=== PATIENT | female | born 1995 | race American Indian/Alaskan Native ===

== ENCOUNTER 2016-08-07 15:19 | Emergency (ER) | payer SELFPAY ==
[2016-08-07 16:23] VITALS: BP 104/77
[2016-08-07] MEDS ORDERED: TYLENOL PO ONE (17:50)
--- NOTE | 2016-08-07 17:53 | Emergency Department Report ---
HPI - General Chief Complaint: Sore Throat - HPI HPI: 20-year-old -[place] female comes with complaint of sore throat 1.5 weeks. She rates it to 7 out of 10. She also complains of sinus pressure, headache, runny nose, cough. Admits to sneezing and nasal congestion. He denies any fever chills no nausea no vomiting. He has a history of glaucoma. ED Past Medical Hx - Past Medical History Previous Medical History?: Yes Additional medical history: glaucoma - Surgical History Past Surgical History?: No - Social History Smoking Status: Never Smoker Substance Use Type: Alcohol - Medications Home Medications: Home Medications Medication Instructions Recorded Confirmed Last Taken Type Amoxicillin [Amoxicillin TAB] 875 mg PO BID #20 tablet 08/07/16 Unknown Rx Cetirizine HCl [ZyrTEC] 10 mg PO QDAY #30 capsule 08/07/16 Unknown Rx Fluticasone [Flonase] 1 spray NS QDAY #1 bottle 08/07/16 Unknown Rx ED Review of Systems ROS: Stated complaint: SORETHROAT Other details as noted in HPI Physical Exam - Physical Exam Vital Signs: Vital Signs 08/07/16 16:14 Temperature 98.3 F Pulse Rate 80 Respiratory 18 Rate Blood Pressure 104/77 O2 Sat by Pulse 100 Oximetry Physical Exam: GENERAL: Alert and oriented x3, no apparent distress, Normal Gait, atraumatic. HEAD: Head is normocephalic and a-traumatic. EYES: Extra ocular muscles are intact. Pupils are equal, round, and reactive to light and accommodation. EARS: symetrical, atraumatic, non tender, ear canal clear and moderate cerumen, tympanic membrance non inflamed. gross auditory nml bilaterally. NOSE: Nose symetrical, Nontender,Nares appeared normal. Maxillary and frontal tenderness MOUTH:Mouth is well hydrated and without lesions. Tonsils nonerythematous or swollen, Uvula midline, Tongue not elevated. Mucous membranes are moist. Posterior pharynx clear, no exudate or lesions. Patent airways. Postnasal drip NECK: Supple. Non edematous, No carotid bruits. No lymphadenopathy or thyromegaly. LUNGS: Symetrical with respiration, No wheezing, no rales or crackles, CTAB. HEART: S1, S2 present, regular rate and rhythm without murmur, no rubs, no gallops. NEUROLOGIC: No focal Deficit, Cranial nerves II through XII are grossly intact. No loss of sensation, No facial droop, Negative rhomberg. PSYCHIATRIC: Mood is congruent with affect, SKIN: Warm and dry, No lesions, No ulceration or induration present ED Course Vital Signs 08/07/16 16:14 Temperature 98.3 F Pulse Rate 80 Respiratory 18 Rate Blood Pressure 104/77 O2 Sat by Pulse 100 Oximetry ED Medical Decision Making - Medical Decision Making Patient's been evaluated by this provider fast track. Discussed the patient sounds like she has a sinus infection discussed the patient we'll place her on antibiotics Claritin Sudafed Flonase. Patient verbalized understanding Critical care attestation.: If time is entered above; I have spent that time in minutes in the direct care of this critically ill patient, excluding procedure time. ED Disposition Clinical Impression: Sinusitis nasal Qualifiers: Sinusitis location: maxillary Chronicity: acute Recurrence: non-recurrent Qualified Code(s): J01.00 - Acute maxillary sinusitis, unspecified Disposition: DISCHARGED TO HOME OR SELFCARE Is pt being admited?: No Does the pt Need Aspirin: No Condition: Stable Instructions: Sinusitis (ED) Additional Instructions: Antibiotics as prescribed use nasal spray as prescribed take Zyrtec as prescribed symptoms continue or get worse following to primary care provider. Prescriptions: Amoxicillin [Amoxicillin TAB] 875 mg PO BID #20 tablet Cetirizine HCl [ZyrTEC] 10 mg PO QDAY #30 capsule Fluticasone [Flonase] 1 spray NS QDAY #1 bottle Referrals: PRIMARY CARE, [Primary Care Provider] - 3-5 Days [facility] [Outside] - 3-5 Days Forms: Work/School Release Form(ED)
== END 2016-08-07 18:05 | disposition home or self-care (01) ==
LOC: ED 15:19
DX: J01.00 Acute maxillary sinusitis, unspecified (principal)
CPT/HCPCS: 99282

== ENCOUNTER 2016-08-30 15:01 | Emergency (ER) | payer SELFPAY ==
[2016-08-30 16:12] VITALS: BP 110/72
--- NOTE | 2016-08-30 19:46 | Emergency Department Report ---
Entered by KATHERIN ZAPIEN, acting as scribe for FABY BENEDICT PA. ED ENT HPI - General Chief complaint: Sore Throat Stated complaint: SORE THROAT /ESTER Source: patient Mode of arrival: Ambulatory Limitations: No Limitations - History of Present Illness Initial comments: 20 y/o female presents c/o a sore throat that started about 1 month ago. Associated Sx include difficulty breathing due to nasal congestion, productive cough with yellow sputum and loss of appetite, but patient denies fever, shortness of breath, abdominal pain or N/V. Patient notes being prescribed medicine for similar Sx previously, but did not take her medication consistently. She has taken benadryl and Tylenol Cold for her present Sx with no relief and has no sick contacts. No additional Sx MD complaint: sore throat Location: throat Quality: constant Consistency: constant Improves with: none Worsens with: none Associated Symptoms: cough (productive with yellow mucous), other (difficulty breathing due to congestion, loss of appetitie, but denies fever, N/V or abd pain) - Related Data Previous Rx's Medication Instructions Recorded Last Taken Type Amoxicillin [Amoxicillin TAB] 875 mg PO BID #20 tablet 08/07/16 Unknown Rx Cetirizine HCl [ZyrTEC] 10 mg PO QDAY #30 capsule 08/30/16 Unknown Rx Fluticasone [Flonase] 1 spray NS QDAY #1 bottle 08/30/16 Unknown Rx Promethazine /Codeine 5 ml PO Q6H PRN #100 ml 08/30/16 Unknown Rx [Phenergan/Codeine 6.25-10 mg/5 ml] Allergies Allergy/AdvReac Type Severity Reaction Status Date / Time pistachio nut Allergy Anaphylaxis Verified 08/07/16 16:23 ED Dental HPI - General Chief complaint: Sore Throat Stated complaint: SORE THROAT /ESTER Source: patient Mode of arrival: Ambulatory Limitations: No Limitations - Related Data Previous Rx's Medication Instructions Recorded Last Taken Type Amoxicillin [Amoxicillin TAB] 875 mg PO BID #20 tablet 08/07/16 Unknown Rx Cetirizine HCl [ZyrTEC] 10 mg PO QDAY #30 capsule 08/30/16 Unknown Rx Fluticasone [Flonase] 1 spray NS QDAY #1 bottle 08/30/16 Unknown Rx Promethazine /Codeine 5 ml PO Q6H PRN #100 ml 08/30/16 Unknown Rx [Phenergan/Codeine 6.25-10 mg/5 ml] Allergies Allergy/AdvReac Type Severity Reaction Status Date / Time pistachio nut Allergy Anaphylaxis Verified 08/07/16 16:23 ED Review of Systems Comment: All other systems reviewed and negative Constitutional: denies: chills, fever Eyes: denies: eye pain, vision change ENT: congestion. denies: ear pain, throat pain Respiratory: cough (productive with yellow mucous). denies: shortness of breath , wheezing Cardiovascular: denies: chest pain, palpitations Endocrine: no symptoms reported Gastrointestinal: denies: abdominal pain, nausea, vomiting Neurological: denies: headache, weakness ED Past Medical Hx - Past Medical History Previous Medical History?: Yes Additional medical history: glaucoma - Surgical History Past Surgical History?: No - Social History Smoking Status: Never Smoker Substance Use Type: Non Opiate Pain - Medications Home Medications: Home Medications Medication Instructions Recorded Confirmed Last Taken Type Amoxicillin [Amoxicillin TAB] 875 mg PO BID #20 tablet 08/07/16 Unknown Rx Cetirizine HCl [ZyrTEC] 10 mg PO QDAY #30 capsule 08/30/16 Unknown Rx Fluticasone [Flonase] 1 spray NS QDAY #1 bottle 08/30/16 Unknown Rx Promethazine /Codeine 5 ml PO Q6H PRN #100 ml 08/30/16 Unknown Rx [Phenergan/Codeine 6.25-10 mg/5 ml] ED Physical Exam - General Limitations: No Limitations - Other Other exam information: GENERAL: The patient is well-developed and well-nourished. Patient is in NAD. HEAD: Normocephalic. Atraumatic. EYES: PERRL. EARS: Hearing grossly intact, cerumen impaction bilaterally NOSE: Nasal passages inflamed bilaterally, positive for drainage THROAT: Erythematous. No swelling or exudates. NECK: Supple, nontender, without lymphadenopathy. No meningitic signs are noted. CHEST/LUNGS: Clear to auscultation throughout. HEART/CARDIOVASCULAR: Regular rate and rhythm. No murmurs, rubs or gallops. ABDOMEN: Abdomen is soft, nontender. No guarding or rebound tenderness. EXTREMITIES: Peripheral pulses intact. Capillary refill less than 2 seconds. NEURO: Alert and oriented x 3. Normal gait. ED Course Vital Signs 08/30/16 16:07 Temperature 97.6 F Pulse Rate 90 Respiratory 16 Rate Blood Pressure 110/72 O2 Sat by Pulse 98 Oximetry ED Medical Decision Making - Lab Data Vital Signs 08/30/16 16:07 Temperature 97.6 F Pulse Rate 90 Respiratory 16 Rate Blood Pressure 110/72 O2 Sat by Pulse 98 Oximetry - Medical Decision Making 20 y/o female presents c/o a sore throat that started about 1 month ago. Her rapid strep test is negative. Patient is in no acute distress at this time. She will be discharged home and is encouraged to follow up with a primary care provider. She will be sent home on promethazine/codeine, Flonase and Zyrtec and is encouraged to return to the emergency room for any worsening symptoms. ED Disposition Clinical Impression: Pharyngitis Qualifiers: Pharyngitis/tonsillitis etiology: unspecified etiology Qualified Code(s): J02.9 - Acute pharyngitis, unspecified Rhinitis Qualifiers: Rhinitis type: allergic Allergic rhinitis seasonality: unspecified seasonality Allergic rhinitis trigger: unspecified Qualified Code(s): J30.9 - Allergic rhinitis, unspecified Disposition: DISCHARGED TO HOME OR SELFCARE Is pt being admited?: No Does the pt Need Aspirin: No Condition: Stable Instructions: Pharyngitis (ED), Allergic Rhinitis (ED) Additional Instructions: Follow-up with primary care provider. Return to emergency department if symptoms worsen. Prescriptions: Cetirizine HCl [ZyrTEC] 10 mg PO QDAY #30 capsule Fluticasone [Flonase] 1 spray NS QDAY #1 bottle Promethazine /Codeine [Phenergan/Codeine 6.25-10 mg/5 ml] 5 ml PO Q6H PRN #100 ml PRN Reason: cough Referrals: PRIMARY CARE, [Primary Care Provider] - 3-5 Days [facility] [Outside] - 3-5 Days Forms: Work/School Release Form(ED) Time of Disposition: 19:02 This documentation as recorded by the RUPALI tinsley RYAN,accurately reflects the service I personally performed and the decisions made by ,FABY BENEDICT PA.
== END 2016-08-30 19:05 | disposition home or self-care (01) ==
LOC: ED 15:01
DX: J02.9 Acute pharyngitis, unspecified (principal); J30.9 Allergic rhinitis, unspecified; Z91.018 Allergy to other foods
CPT/HCPCS: 87116; 87430; 99282

== ENCOUNTER 2020-03-25 12:50 | Emergency (ER) | payer SELFPAY ==
[2020-03-25 12:58] VITALS: BP 104/66
--- NOTE | 2020-03-25 13:27 | Emergency Department Report ---
Chief Complaint: Sore Throat Stated Complaint: SICK - HPI History of Present Illness: 24-year-old -Citizen Of [place] female presents to the emergency room for 3-week history of sore throat. Patient has not taking any pain medication. She reports she had a fever subjectively. Patient states she is able to eat and drink no nausea no vomiting no abdominal pain. Intermittent cough. Has not been tested for Covid. - Exam Vital Signs: Vital Signs 03/25/20 12:57 Temperature 98.4 F Pulse Rate 93 H Respiratory 16 Rate Blood Pressure 104/66 O2 Sat by Pulse 99 Oximetry Physical Exam: Gen: alert oriented NAD Throat: postnasal drip nonerythematous nonedematous no exudate appreciated. Cardic: regular rate and rhythm no murmurs appreciated Resp: Clear to auscultation bilateral no wheezing no rales or rhonchi. Abdomen: Soft nontender nondistended normal bowel sounds. MSE screening note: Focused history and physical exam performed. Due to findings the following was ordered: 24-year-old -Citizen [place] female presents to the emergency room for 3-week history of sore throat. Patient has not taking any pain medication. She reports she had a fever subjectively. Patient states she is able to eat and drink no nausea no vomiting no abdominal pain. Intermittent cough. Has not been tested for Covid. Recommend Covid testing [id number] Tylenol or ibuprofen and Zyrtec's. ED Disposition for MSE Disposition: MED SCREENING EXAM-LEFT Is pt being admited?: No Does the pt Need Aspirin: No Condition: Stable Additional Instructions: Please try taking Zyrtec's [id number] Tylenol and ibuprofen. Your symptoms appear most consistent with a nonspecific viral syndrome. However, given this current pandemic, COVID-19 is in the differential of possibilities. Despite your previous negative COVID-19 test, I do recommend repeat outpatient Covid 19 testing. In the meantime, isolate/quarantine yourself and stay away from anyone who is elderly, immunocompromised or chronically ill. You can use ibuprofen every 6-8 hours and Tylenol every 4-8 hours, using the dosing on the back of the bottle, as needed for any fever or body aches. Return to the emergency department with any worsening of your symptoms, development of chest pain or shortness of breath, or with any acute distress. Referrals: [facility] [Provider Group] - 3-5 Days Forms: Work/School Release Form(ED)
== END 2020-03-25 14:26 | disposition left against medical advice (07) ==
LOC: ED 12:50
DX: R69 Illness, unspecified (principal); Z53.21 Procedure and treatment not carried out due to patient leaving prior to being seen by health care provider

== ENCOUNTER 2020-07-19 13:37 | Emergency (ER) | payer SELFPAY ==
[2020-07-19 14:06] VITALS: BP 101/61
--- NOTE | 2020-07-19 14:12 | Emergency Department Report ---
ED ENT HPI - General Chief complaint: Earache Stated complaint: RT EAR PAIN Time Seen by Provider: 07/19/20 14:08 Source: patient Mode of arrival: Ambulatory Limitations: No Limitations - History of Present Illness Initial comments: 24 yo comes to ER co bilateral ear pain the right she states is worse. She has had no recent URI. No fever or chills. No cough. No sob. No cp. No sinus pain or pressure. Taking PO without difficulty. Denies trauma to ear. Has not seen PCP She has not taken anything at home for pain. Pain she describes a pressure. No sore throat. No headache or sinus complaints. No coughing or sneezing. MD complaint: ear pain -: Gradual, days(s) Location: R ear, L ear Severity: moderate Consistency: intermittent Improves with: pressure Worsens with: none Associated Symptoms: discharge from ear. denies: fever, cough, gum swelling, toothache, pain with swallowing, sore throat, tinnitus, hearing loss, rhinorrhea - Related Data Previous Rx's Medication Instructions Recorded Last Taken Type Amoxicillin [Trimox CAP] 500 mg PO BID #20 capsule 07/19/20 Unknown Rx Ciprofloxacin HCl/Dexameth 1 drop AD BID #1 each 07/19/20 Unknown Rx [Ciprodex Otic Suspension] Allergies Allergy/AdvReac Type Severity Reaction Status Date / Time pistachio nut Allergy Anaphylaxis Verified 07/19/20 14:03 ED Dental HPI - General Chief complaint: Earache Stated complaint: RT EAR PAIN Time Seen by Provider: 07/19/20 14:08 Source: patient Mode of arrival: Ambulatory Limitations: No Limitations - Related Data Previous Rx's Medication Instructions Recorded Last Taken Type Amoxicillin [Trimox CAP] 500 mg PO BID #20 capsule 07/19/20 Unknown Rx Ciprofloxacin HCl/Dexameth 1 drop AD BID #1 each 07/19/20 Unknown Rx [Ciprodex Otic Suspension] Allergies Allergy/AdvReac Type Severity Reaction Status Date / Time pistachio nut Allergy Anaphylaxis Verified 07/19/20 14:03 ED Review of Systems ROS: Stated complaint: RT EAR PAIN Other details as noted in HPI Comment: All other systems reviewed and negative ED Past Medical Hx - Past Medical History Previous Medical History?: Yes Additional medical history: glaucoma - Surgical History Past Surgical History?: No - Family History Family history: no significant - Social History Smoking Status: Never Smoker Substance Use Type: Alcohol, Marijuana - Medications Home Medications: Home Medications Medication Instructions Recorded Confirmed Last Taken Type Amoxicillin [Trimox CAP] 500 mg PO BID #20 capsule 07/19/20 Unknown Rx Ciprofloxacin HCl/Dexameth 1 drop AD BID #1 each 07/19/20 Unknown Rx [Ciprodex Otic Suspension] ED Physical Exam - General Limitations: No Limitations General appearance: alert, in no apparent distress - Head Head exam: Present: atraumatic, normocephalic - Eye Eye exam: Present: normal appearance - ENT ENT exam: Present: mucous membranes moist - Expanded ENT Exam Expanded TM/Canal exam: Erythema: Left TM, Bulging: Left TM, Effusion: Left TM, Loss of Landmarks: Left TM, Foreign Body: Left TM, Canal Discharge: Right TM, Canal Tenderness: Right TM Mouth exam: Present: normal external inspection Teeth exam: Present: normal inspection Throat exam: Positive: normal inspection - Neck Neck exam: Present: normal inspection - Respiratory Respiratory exam: Present: normal lung sounds bilaterally. Absent: respiratory distress - Cardiovascular Cardiovascular Exam: Present: regular rate, normal rhythm. Absent: systolic murmur, diastolic murmur, rubs, gallop - GI/Abdominal GI/Abdominal exam: Present: soft, normal bowel sounds - Extremities Exam Extremities exam: Present: normal inspection - Back Exam Back exam: Present: normal inspection - Neurological Exam Neurological exam: Present: alert, oriented X3 - Psychiatric Psychiatric exam: Present: normal affect, normal mood - Skin Skin exam: Present: warm, dry, intact, normal color. Absent: rash ED Course Vital Signs 07/19/20 14:05 Temperature 98.4 F Pulse Rate 83 Respiratory 18 Rate Blood Pressure 101/61 [Right] O2 Sat by Pulse 98 Oximetry ED Medical Decision Making - Medical Decision Making VSS NAD no fever or chills no cp or sob Vital Signs 07/19/20 14:05 Temperature 98.4 F Pulse Rate 83 Respiratory 18 Rate Blood Pressure 101/61 [Right] O2 Sat by Pulse 98 Oximetry dc home with dc plan of care. She verbalizes understanding of meds and follow up. - Differential Diagnosis OM/otitis externa Critical care attestation.: If time is entered above; I have spent that time in minutes in the direct care of this critically ill patient, excluding procedure time. ED Disposition Clinical Impression: Otitis media, Otitis externa Disposition: DC-01 TO HOME OR SELFCARE Is pt being admited?: No Does the pt Need Aspirin: No Condition: Stable Instructions: Otitis Media, Adult Additional Instructions: do not use qtips or put anything in ears other than what I gave you today motrin or tylenol for pain follow up with pcp if problems persist after med completed referral below Prescriptions: Ciprofloxacin HCl/Dexameth [Ciprodex Otic Suspension] 1 drop AD BID #1 each Amoxicillin [Trimox CAP] 500 mg PO BID #20 capsule Referrals: STEVEN STARR MD [Staff Physician] - 3-5 Days Forms: Work/School Release Form(ED) Time of Disposition: 14:12
== END 2020-07-19 14:32 | disposition home or self-care (01) ==
LOC: ED 13:37
DX: H66.91 Otitis media, unspecified, right ear (principal); H60.91 Unspecified otitis externa, right ear; F12.10 Cannabis abuse, uncomplicated; Z79.2 Long term (current) use of antibiotics; Z79.899 Other long term (current) drug therapy
CPT/HCPCS: 99281

== ENCOUNTER 2020-08-07 10:05 | Emergency (ER) | payer SELFPAY ==
[2020-08-07 10:18] VITALS: BP 113/76
--- NOTE | 2020-08-07 10:26 | Emergency Department Report ---
ED General Adult HPI - General Chief complaint: Earache Stated complaint: EAR INFECTION Time Seen by Provider: 08/07/20 10:15 Source: patient Mode of arrival: Ambulatory Limitations: No Limitations - History of Present Illness Initial comments: 24-year-old -[place] female patient presents with complaints of continued right ear pain x1 month. Patient was seen here 07/19/2020 and diagnosed with otitis media and otitis externa. Patient states she has been taken amoxicillin without improvement in her symptoms. She also reports that she was prescribed eardrops, however they were too expensive and she did not fill them. She rates her current pain as a 4/10 in severity and does report ear drainage. She denies any fever/chills/sweats, chest pain, shortness of breath, cough, skin changes, or dysphagia. No past medical history per patient. - Related Data Previous Rx's Medication Instructions Recorded Last Taken Type Amoxicillin [Trimox CAP] 500 mg PO BID #20 capsule 07/19/20 Unknown Rx Ciprofloxacin HCl/Dexameth 1 drop AD BID #1 each 07/19/20 Unknown Rx [Ciprodex Otic Suspension] Azithromycin [Zithromax Z-FATOUMATA] 0 mg PO DAILY #6 tab 08/07/20 Unknown Rx Ofloxacin 0.3% [Floxin 0.3% Otic] 10 drop AD QDAY 7 Days #1 bottle 08/07/20 Unknown Rx Allergies Allergy/AdvReac Type Severity Reaction Status Date / Time pistachio nut Allergy Anaphylaxis Verified 07/19/20 14:03 ED Review of Systems ROS: Stated complaint: EAR INFECTION Other details as noted in HPI Constitutional: denies: chills, diaphoresis, fever, malaise Eyes: denies: eye pain, eye discharge, vision change ENT: ear pain Respiratory: denies: cough Cardiovascular: denies: chest pain Endocrine: denies: excessive sweating Gastrointestinal: denies: nausea, vomiting Skin: denies: rash, lesions, change in color Hematological/Lymphatic: denies: swollen glands ED Past Medical Hx - Past Medical History Previous Medical History?: Yes Additional medical history: glaucoma - Surgical History Past Surgical History?: No - Social History Smoking Status: Never Smoker Substance Use Type: None - Medications Home Medications: Home Medications Medication Instructions Recorded Confirmed Last Taken Type Amoxicillin [Trimox CAP] 500 mg PO BID #20 capsule 03/04/21 Unknown Rx Ciprofloxacin HCl/Dexameth 1 drop AD BID #1 each 07/19/20 Unknown Rx [Ciprodex Otic Suspension] Azithromycin [Zithromax Z-FATOUMATA] 0 mg PO DAILY #6 tab 08/07/20 Unknown Rx Ofloxacin 0.3% [Floxin 0.3% Otic] 10 drop AD QDAY 7 Days #1 bottle 08/07/20 Unknown Rx ED Physical Exam - General Limitations: No Limitations General appearance: alert, in no apparent distress - Head Head exam: Present: atraumatic, normocephalic - Eye Eye exam: Present: normal appearance. Absent: scleral icterus - Expanded ENT Exam Expanded TM/Canal exam: Canal Discharge: Right TM (Right purulent; difficulty visualizing tympanic membrane), Canal Tenderness: Right TM Mouth exam: Absent: drooling, trismus, muffled voice Teeth exam: Present: normal inspection Throat exam: Positive: normal inspection - Neck Neck exam: Present: normal inspection, full ROM. Absent: lymphadenopathy - Respiratory Respiratory exam: Absent: respiratory distress - Cardiovascular Cardiovascular Exam: Present: regular rate - Neurological Exam Neurological exam: Present: alert, oriented X3 - Psychiatric Psychiatric exam: Present: normal affect, normal mood - Skin Skin exam: Present: warm, dry, intact, normal color. Absent: rash ED Course Vital Signs 08/07/20 08/07/20 10:10 11:39 Temperature 98.2 F Pulse Rate 104 H 88 Respiratory 20 18 Rate Blood Pressure 113/76 O2 Sat by Pulse 98 99 Oximetry ED Medical Decision Making - Medical Decision Making 24-year-old -[place] female patient presents with complaints of continued right ear pain x1 month. Patient was seen here 07/19/2020 and diagnosed with otitis media and otitis externa. Patient states she has been taken amoxicillin without improvement in her symptoms. She also reports that she was prescribed eardrops, however they were too expensive and she did not fill them. She rates her current pain as a 4/10 in severity and does report ear drainage. She denies any fever/chills/sweats, chest pain, shortness of breath, cough, skin changes, or dysphagia. No past medical history per patient. Right otitis externa noted on exam with difficulty visualizing tympanic membrane. Given possible resistance to Amoxil, will place patient on azithromycin with ofloxacin otic drops. Recommend follow-up with ENT within 3 days. Her vitals are normal, she is well-appearing, she is stable for discharge home. Signs and symptoms that should prompt immediate return to the emergency department were discussed in detail with patient who verbalizes understanding. Critical care attestation.: If time is entered above; I have spent that time in minutes in the direct care of this critically ill patient, excluding procedure time. ED Disposition Clinical Impression: Otitis media Qualifiers: Otitis media type: suppurative Chronicity: acute Laterality: right Recurrence: not specified as recurrent Otitis externa Qualifiers: Otitis externa type: other infective Disposition: DC-01 TO HOME OR SELFCARE Is pt being admited?: No Condition: Stable Instructions: Otitis Media, Adult, [id number], Otitis Externa Prescriptions: Ofloxacin 0.3% [Floxin 0.3% Otic] 10 drop AD QDAY 7 Days #1 bottle Azithromycin [Zithromax Z-FATOUMATA] 0 mg PO DAILY #6 tab Referrals: ALIVIA LINDQUIST MD [Staff Physician] - 2-3 Days
== END 2020-08-07 11:39 | disposition home or self-care (01) ==
LOC: ED 10:05
DX: H66.91 Otitis media, unspecified, right ear (principal); H60.91 Unspecified otitis externa, right ear; Z79.899 Other long term (current) drug therapy; Z91.018 Allergy to other foods
CPT/HCPCS: 99282

== ENCOUNTER 2020-08-21 15:28 | Emergency (ER) | payer MEDICAID ==
[2020-08-21 15:50] VITALS: BP 105/66
--- NOTE | 2020-08-21 18:03 | Emergency Department Report ---
ED Female HPI - General Chief complaint: Urogenital-Female Stated complaint: STOMACH PAIN/STD EVLAUATION Time Seen by Provider: 08/21/20 17:54 Source: patient Mode of arrival: Ambulatory Limitations: No Limitations - History of Present Illness Initial comments: Patient is a 24 yo female who presents to the emergency room with complaints of "STD." she states that over the last few days she has had some pelvic discomfort. She states that last week her partner advised her that he tested positive for chlamydia. she states that they have been having unprotected intercourse. she states she has a small amount of white vaginal discharge which she reports is normal for pt. pt denies any fever, n/v/d, dysuria, vaginal itching or burning or lesions, vaginal bleeding. PMHx none. no allergies to meds. LNMP 2 weeks ago. - Related Data Previous Rx's Medication Instructions Recorded Last Taken Type Amoxicillin [Trimox CAP] 500 mg PO BID #20 capsule 07/19/20 Unknown Rx Ciprofloxacin HCl/Dexameth 1 drop AD BID #1 each 07/19/20 Unknown Rx [Ciprodex Otic Suspension] Azithromycin [Zithromax Z-FATOUMATA] 0 mg PO DAILY #6 tab 08/07/20 Unknown Rx Ofloxacin 0.3% [Floxin 0.3% Otic] 10 drop AD QDAY 7 Days #1 bottle 08/07/20 Unknown Rx Doxycycline Hyclate [Doxycycline 100 mg PO BID 7 Days #14 tab 08/21/20 Unknown Rx Hyclate TAB] Allergies Allergy/AdvReac Type Severity Reaction Status Date / Time pistachio nut Allergy Anaphylaxis Verified 07/19/20 14:03 ED Review of Systems ROS: Stated complaint: STOMACH PAIN/STD EVLAUATION Other details as noted in HPI Comment: All other systems reviewed and negative ED Past Medical Hx - Past Medical History Previous Medical History?: No Additional medical history: glaucoma - Surgical History Past Surgical History?: No - Social History Smoking Status: Never Smoker Substance Use Type: None - Medications Home Medications: Home Medications Medication Instructions Recorded Confirmed Last Taken Type Amoxicillin [Trimox CAP] 500 mg PO BID #20 capsule 07/19/20 Unknown Rx Ciprofloxacin HCl/Dexameth 1 drop AD BID #1 each 07/19/20 Unknown Rx [Ciprodex Otic Suspension] Azithromycin [Zithromax Z-FATOUMATA] 0 mg PO DAILY #6 tab 08/07/20 Unknown Rx Ofloxacin 0.3% [Floxin 0.3% Otic] 10 drop AD QDAY 7 Days #1 bottle 08/07/20 Unknown Rx Doxycycline Hyclate [Doxycycline 100 mg PO BID 7 Days #14 tab 08/21/20 Unknown Rx Hyclate TAB] ED Physical Exam - General Limitations: No Limitations General appearance: alert, in no apparent distress - Head Head exam: Present: atraumatic, normocephalic - Eye Eye exam: Present: normal appearance - ENT ENT exam: Present: mucous membranes moist - Respiratory Respiratory exam: Present: normal lung sounds bilaterally. Absent: respiratory distress, wheezes, rales, rhonchi, stridor, chest wall tenderness, accessory muscle use, decreased breath sounds, prolonged expiratory - Cardiovascular Cardiovascular Exam: Present: regular rate, normal rhythm, normal heart sounds. Absent: systolic murmur, diastolic murmur, rubs, gallop - GI/Abdominal GI/Abdominal exam: Present: soft, normal bowel sounds. Absent: distended, tenderness, guarding, rebound, rigid - Neurological Exam Neurological exam: Present: alert, oriented X3 - Psychiatric Psychiatric exam: Present: normal affect, normal mood - Skin Skin exam: Present: warm, dry, intact ED Course Vital Signs 08/21/20 15:49 Temperature 98.1 F Pulse Rate 85 Respiratory 17 Rate Blood Pressure 105/66 [Right] O2 Sat by Pulse 99 Oximetry ED Medical Decision Making - Lab Data Vital Signs 08/21/20 15:49 Temperature 98.1 F Pulse Rate 85 Respiratory 17 Rate Blood Pressure 105/66 [Right] O2 Sat by Pulse 99 Oximetry Lab Results 08/21/20 Range/Units Unknown Urine Color Yellow (Yellow) Urine Turbidity Cloudy (Clear) Urine pH 6.0 (5.0-7.0) Ur Specific [place] 1.006 (1.003-1.030) Urine Protein <15 mg/dl (Negative) mg/dL Urine Glucose (UA) Neg (Negative) mg/dL Urine Ketones Neg (Negative) mg/dL Urine Blood Neg (Negative) Urine Nitrite Neg (Negative) Ur Reducing Substances Not Reportable Urine Bilirubin Neg (Negative) Urine Ictotest Not Reportable Urine Urobilinogen < 2.0 (<2.0) mg/dL Ur Leukocyte Esterase Mod (Negative) Urine WBC (Auto) 13.0 H (0.0-6.0) /HPF Urine RBC (Auto) 5.0 (0.0-6.0) /HPF U Epithel Cells (Auto) 26.0 H (0-13.0) /HPF Urine Bacteria (Auto) 1+ (Negative) /HPF Urine Mucus Few /HPF Urine Yeast (Budding) Few /HPF Urine HCG, Qual Negative (Negative) - Medical Decision Making Patient is a 24 yo female who presents to the emergency room with complaints of "STD." she states that over the last few days she has had some pelvic discomfort. She states that last week her partner advised her that he tested positive for chlamydia. she states that they have been having unprotected intercourse. she states she has a small amount of white vaginal discharge which she reports is normal for pt. pt denies any fever, n/v/d, dysuria, vaginal itching or burning or lesions, vaginal bleeding. PMHx none. no allergies to meds. LNMP 2 weeks ago. Vitals are normal. On exam: No abdominal tenderness palpation, no guarding, no rebound, no rigidity, normal bowel sounds, no peritoneal signs. UA shows a small amount of white blood cells and moderate leukocyte esterase, there are many epithelial cells, could be due to contamination versus STD, patient is not having any urinary symptoms. Advised patient to have a repeat UA by her primary care physician. Due to known exposure, patient request prophylactic treatment. Patient given ceftriaxone IM and a prescription for doxycycline. Advised patient Please take medication as prescribed to completion. Follow-up with your primary care doctor and have your urine retested. Please follow-up with a clinic or the health department in order to have a full STD panel. Please have any partner tested and treated as well. Avoid sexual intercourse. Return to emergency room for new or worsening symptoms. Critical care attestation.: If time is entered above; I have spent that time in minutes in the direct care of this critically ill patient, excluding procedure time. ED Disposition Clinical Impression: Pelvic pain, Concern about STD in female without diagnosis Disposition: DC- TO HOME OR SELFCARE Is pt being admited?: No Does the pt Need Aspirin: No Condition: Stable Instructions: Safe Sex, Chlamydia, Female, Preventing Sexually Transmitted Infe ctions, Adult Additional Instructions: Please take medication as prescribed to completion. Follow-up with your primary care doctor and have your urine retested. Please follow-up with a clinic or the health department in order to have a full STD panel. Please have any partner tested and treated as well. Avoid sexual intercourse. Return to emergency room for new or worsening symptoms. walk in clinic: [facility] Address: [address] [place] [id number] [facility] Address: [address] [place] [address] [facility] Address: [address] [place] [address] Prescriptions: Doxycycline Hyclate [Doxycycline Hyclate TAB] 100 mg PO BID 7 Days #14 tab Referrals: PRIMARY CARE, [Primary Care Provider] - 2-3 Days [facility] [Outside] - 2-[address] [facility] [Provider Group] - 2-3 Days Time of Disposition: 20:18 Print Language: LAO
[2020-08-21 20:02] LABS: HCG Qualitative,Urine Negative (Negative)
[2020-08-21 20:11] LABS: Bacteria,Urine 1+ /HPF (Negative); Bilirubin,Urine NEG (Negative); Blood,Urine NEG (Negative); Color,Urine Yellow (Yellow); Mucus,Urine FEW /HPF; Protein,Urine <15 mg/dL mg/dL (Negative); Urobilinogen,Urine < 2.0 mg/dL (<2.0)
[2020-08-21] MEDS ORDERED: LIDOCAINE-MPF (1%) 10 MG/1 ML VIAL 5 ML INFILTRATI ONE (20:21)
== END 2020-08-21 21:00 | disposition home or self-care (01) ==
LOC: ED 15:28
DX: R10.2 Pelvic and perineal pain (principal); Z20.2 Contact with and (suspected) exposure to infections with a predominantly sexual mode of transmission; Z79.899 Other long term (current) drug therapy
CPT/HCPCS: 81001; 81025; 87086; 96372; 99283; J0696

== ENCOUNTER 2021-11-18 16:40 | Emergency (ER) | payer MEDICAID ==
--- NOTE | 2021-11-18 21:25 | Emergency Department Report ---
ED Rash HPI - HPI Chief Complaint: Medical Clearance Stated Complaint: HERPES EXPOSURE Time Seen by Provider: 11/18/21 20:38 Duration: 3 Days Location: Other Suspected Cause: Other Severity: mild Other History: 25-year-old female Jossue Soares complaining of a hyper simplex outbreak and seeking treatment as she has had to have in the past. She reports no fever, chills, sweats. No chest pain palpitation. No nausea no vomiting ED Review of Systems ROS: Stated complaint: HERPES EXPOSURE Other details as noted in HPI Comment: All other systems reviewed and negative ED Past Medical Hx - Past Medical History Previous Medical History?: Yes Additional medical history: glaucoma, Vaginal delivery x 1 - Surgical History Past Surgical History?: No - Social History Smoking Status: Never Smoker Substance Use Type: None - Medications Home Medications: Home Medications Medication Instructions Recorded Confirmed Last Taken Type Amoxicillin [Trimox CAP] 500 mg PO BID #20 capsule 07/19/20 Unknown Rx Ciprofloxacin HCl/Dexameth 1 drop AD BID #1 each 07/19/20 Unknown Rx [Ciprodex Otic Suspension] Azithromycin [Zithromax Z-FATOUMATA] 0 mg PO DAILY #6 tab 08/07/20 Unknown Rx Ofloxacin 0.3% [Floxin 0.3% Otic] 10 drop AD QDAY 7 Days #1 bottle 08/07/20 Unknown Rx Doxycycline Hyclate [Doxycycline 100 mg PO BID 7 Days #14 tab 08/21/20 Unknown Rx Hyclate TAB] Acyclovir [Zovirax Tab] 800 mg PO 5XD #40 11/18/21 Unknown Rx Rash Exam - Exam General: Vital signs noted. No distress. Alert and acting appropriately. HEENT: No Periorbital Edema, No Conjuctival Injection, No Chemosis, No Perioral Edema, No Tongue Edema, No Uvular Edema, No Compromised Airway, No Drooling Lungs: Yes Good Air Exchange (Normal Breath Sounds), No Wheezes, No Ronchi, No Stridor, No Cough, No Labored Respirations, No Retractions, No Use of Accessory Muscles, No Other Abnormal Lung Sounds Heart: Yes Regular, No Murmur Skin: Yes Maculopapular Rash Other: Positive: Abdomen Normal, Neurologic Normal, Musculoskeletal Normal ED Course Vital Signs 11/18/21 16:46 Temperature 98.7 F Pulse Rate 89 Respiratory 20 Rate Blood Pressure 111/72 [Right] O2 Sat by Pulse 98 Oximetry Critical care attestation.: If time is entered above; I have spent that time in minutes in the direct care of this critically ill patient, excluding procedure time. ED Disposition Clinical Impression: Rash and nonspecific skin eruption Disposition: 01 HOME / SELF CARE / HOMELESS Is pt being admited?: No Does the pt Need Aspirin: No Condition: Stable Instructions: Rash, Adult Prescriptions: Acyclovir [Zovirax Tab] 800 mg PO 5XD #40 Referrals: [facility] [Provider Group] - 3-5 Days
[2021-11-19 01:39] VITALS: BP 100/60
== END 2021-11-18 21:30 | disposition home or self-care (01) ==
LOC: ED 16:40
DX: R21 Rash and other nonspecific skin eruption (principal)
CPT/HCPCS: 99282